=== PATIENT | female | born 1995 | race Caucasian/White ===

== ENCOUNTER 2025-03-16 20:13 | Emergency (ER) | payer MEDICAID ==
[~2025-03-16] VITALS: Ht 149.9 cm; Wt 75.1 kg
[2025-03-16 20:15] VITALS: TEMP 98.7
[2025-03-16 20:49] LABS: MEAN PLATELET VOLUME 9.1 FL (7.4-10.4); RED CELL DISTRIBUTION WIDTH 13.7 % (11.5-14.5)
[2025-03-16 20:58] LABS: LEUKOCYTE ESTERASE ,URINE NEGATIVE (Neg); NITRITES, URINE NEGATIVE (Neg); OCCULT BLOOD,URINE MODERATE (Neg)
[2025-03-16 21:01] LABS: UA COLLECTION TYPE CLN CATCH MIDSTREAM; URINE HCG NEGATIVE (NEG)
[2025-03-16 21:08] LABS: CREATININE 0.96 MG/DL (0.40-0.90); TOTAL CARBON DIOXIDE 28.2 MMOL/L (24-32); eCRCL 59 ML/MIN; eGFR 69 ML/MIN
[2025-03-16 21:09] LABS: MUCUS STRANDS FEW /LPF (Neg); SQUAMOUS EPITHELIAL CELL,UR MODERATE /LPF (FEW)
--- NOTE | 2025-03-16 23:59 | Physician Documentation ---
History of Present Illness Chief Complaint: Abdominal Pain w/vomiting Stated Complaint: ABD PAIN Time Seen by MD: 23:45 HPI Patient is seen today with a complicated history of right upper quadrant abdominal pain. Patient states he is taking a GLP one injection for PCOS and she started that about 10 months ago. Patient states November of this year about four months ago she started having severe and significant right upper quadrant abdominal pain. Patient states he has had multiple abdominal ultrasounds and a HIDA scan as well as a CT scan of her abdomen today at [facility] without any sign of cholecystitis or other abnormality of her abdomen visible on CT scan. Patient states she is having severe abdominal pain mostly in the right upper quadrant and states she has terrible gas pain. Patient states she also has not had a bowel movement in about four days however she also has not been eating very much. She has no other concern or complaint at this time. Medication Reconciliation Allergies: Coded Allergies: No Known Allergies (Unverified , 03/16/25) Review of Systems Constitutional: Denies: chills, fever, weakness Eyes: Denies: pain, blurred vision ENT: Denies: ear pain, nose pain, throat pain, mouth pain Respiratory: Denies: cough, shortness of breath Cardiovascular: Denies: chest pain, palpitations Gastrointestinal: Denies: abdominal pain, nausea, vomiting Genitourinary: Denies: burning, dysuria Female Genitalia: Denies: vaginal discharge, pelvic pain Neurological: Denies: headache, dizziness Musculoskeletal: Denies: pain, swelling Integumentary: Denies: rash, lesions Allergic/Immunologic: Denies: hives, itching Hematologic/Lymphatic: Denies: no symptoms reported Psychiatric: Denies: depression, anxiety Physical Exam Vital Signs: Temperature: 98.7, Source: Oral, Heart Rate: 103, Respiratory Rate: 16, BP: 135/98, Pulse Oximetry: 100, Weight: 75.100 Oxygen Flow Rate: 0 Physical Exam General: Awake and Alert, no acute distress. HEENT: Conjunctiva pink, Sclera clear, Mucus Membranes moist. Neck: Supple without masses and tenderness. Resp: Unlabored. Lungs clear to auscultation bilaterally. Heart: Regular Rate and rhythm, normal S1 and S2 without murmur, rub or gallop. Abdomen: On exam abdomen is soft, nondistended, no guarding, no rebound tenderness, patient has some tenderness in the right upper quadrant, no masses. Extremities: No cyanosis,clubbing or edema. Skin: Warm and Dry. Progress Results/Orders Results/Orders Vital Signs 03/16/25 20:15 Temp 98.7 Pulse 103 Resp 16 B/P (MAP) 135/98 Pulse Ox 100 O2 Flow Rate 0 Laboratory Tests Test 03/16/25 20:20 03/16/25 20:39 Urine Specimen Description Cln catch midstream Urine Color Yellow Urine Clarity Clear Urine pH 5.5 Urine Specific [place] 1.025 Urine Protein Negative Urine Glucose (UA) Negative Urine Ketones Negative Urine Occult Blood Moderate H Urine Nitrite Negative Urine Bilirubin Negative Urine Urobilinogen 0.2 Urine Leukocyte Esterase Negative Urine RBC 3-10 Urine WBC 0-4 Urine Squamous Epithelial Cells Moderate Urine Bacteria None seen Urine Mucus Few Urine Culture Indicated Not ind Volume Urine Centrifuged 8 ml Urine HCG, Qualitative Negative Urine Comment Low volume White Blood Count 10.1 Red Blood Count 4.87 Hemoglobin 14.1 Hematocrit 42.1 Mean Corpuscular Volume 86.3 Mean Corpuscular Hemoglobin 29.0 Mean Corpuscular Hemoglobin Concent 33.6 Red Cell Distribution Width 13.7 Platelet Count 256 Mean Platelet Volume 9.1 Neutrophils (%) (Auto) 64.0 Lymphocytes (%) (Auto) 25.1 Monocytes (%) (Auto) 9.5 Eosinophils (%) (Auto) 1.0 Basophils (%) (Auto) 0.4 Neutrophils # (Auto) 6.4 Lymphocytes # (Auto) 2.5 Monocytes # (Auto) 1.0 H Eosinophils # (Auto) 0.1 Basophils # (Auto) 0.0 CBC Comment Sodium Level 139 Potassium Level 4.0 Chloride Level 103 Carbon Dioxide Level 28.2 Anion Gap 8 Blood Urea Nitrogen 7 Creatinine 0.96 H Estimated GFR/1.73 m2 69 BUN/Creatinine Ratio 7.3 L Glucose Level 91 Calcium Level 9.1 Total Bilirubin 0.6 Aspartate Amino Transf (AST/SGOT) 16 Alanine Aminotransferase (ALT/SGPT) 17 Alkaline Phosphatase 65 Total Protein 7.3 Albumin 3.8 Globulin 3.5 Albumin/Globulin Ratio 1.1 Lipase 31 Chemistry Comments Medical Decision Making Findings Patient is seen today with a complicated history of right upper quadrant abdominal pain. Patient states he is taking a GLP one injection for PCOS and she started that about 10 months ago. Patient states November of this year about four months ago she started having severe and significant right upper quadrant abdominal pain. Patient states he has had multiple abdominal ultrasounds and a HIDA scan as well as a CT scan of her abdomen today at [facility] without any sign of cholecystitis or other abnormality of her abdomen visible on CT scan. Patient states she is having severe abdominal pain mostly in the right upper quadrant and states she has terrible gas pain. Patient states she also has not had a bowel movement in about four days however she also has not been eating very much. She has no other concern or complaint at this time. Patient was given dose of [place] 10/325 mg one tab by mouth in the ED tonight. Patient was also given dose of senna, and MiraLax in the ED tonight. 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 Patient will discontinue the use of her GLP-1 agonist at this time. Patient will follow up with her primary care in 3-5 days if no better as needed sooner. Return to ED with any worsening, concerning or changing symptoms. Patient will be given prescription of senna sent to patient's pharmacy and she will take MiraLax twice a day for seven days or until desired bowel movement. Patient will advance diet as tolerated will stay well hydrated. Departure Disposition: HOME / SELF CARE / HOMELESS Impression: Primary Impression: Abdominal pain Qualified Codes: R10.11 - Right upper quadrant pain Condition: Improved Discharge Instructions: Gastroparesis Additional Instructions: Patient was given dose of [place] 10/325 mg one tab by mouth in the ED tonight. Patient was also given dose of senna, and MiraLax in the ED tonight. 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 Patient will discontinue the use of her GLP-1 agonist at this time. Patient will follow up with her primary care in 3-5 days if no better as needed sooner. Return to ED with any worsening, concerning or changing symptoms. Patient will be given prescription of senna sent to patient's pharmacy and she will take MiraLax twice a day for seven days or until desired bowel movement. Patient will advance diet as tolerated will stay well hydrated. Referrals: NO PRIMARY CARE PROVIDER (PCP) Prescriptions Hydrocodone Bit/Acetaminophen (Hydrocodone-Apap 10-325 Tablet) 10mg/325mg Tablet 1 TAB PO BID PRN for pain for 3 Days, #6 TAB Prov: ODALYS CLARK 03/17/25 Sennosides/Docusate Sodium (Senna Plus 8.6-50 mg Tablet) 8.6 Mg-50 Mg Tablet 1 TAB PO TID for 10 Days, #30 TAB 0 Refills Prov: ODALYS CLARK 03/17/25 Signature Scribe Signature: No scribe Attestation: No scribe ODALYS CLARK Mar 16, 2025 23:59
[2025-03-17] MEDS ORDERED: SENN-302 PO (00:08)
[2025-03-17] MEDS ORDERED: HYDR-3973 PO (00:08)
[2025-03-17] MEDS: polyethylene glycol 3350 17gm powd pack PO STA (00:25)
[2025-03-17] MEDS: HYDROcodone/acetaminophen 10/325mg tab PO STA (00:25)
[2025-03-17 00:48] VITALS: BP 130/87; PULSE 80; RESP 16; O2SAT 99
== END 2025-03-17 00:50 | disposition home or self-care (01) ==
LOC: ER 20:15
DX: R10.11 Right upper quadrant pain (principal)
CPT/HCPCS: 36415; 80053; 81001; 81025; 83690; 85025; 99284

== ENCOUNTER 2025-07-22 11:24 | Emergency (ER) | payer MEDICAID ==
[~2025-07-22] VITALS: Ht 162.6 cm; Wt 71.0 kg
[~2025-07-22 11:24] MED LIST: SENN-302 PO
--- NOTE | 2025-07-22 11:34 | Physician Documentation ---
History of Present Illness Stated Complaint: ABD PAIN HPI Patient is a 29-year-old female that presents to the emergency department via ambulance her right upper quadrant pain since 0 500 this morning. Patient reports he has had multiple episodes of this since starting to his appetite. Patient reports he has not had a bowel. Patient reports that she is passing gas. Patient reports that the pain has significant needs to lie down in the position in order to alleviate some of the pain. Patient endorses nausea vomiting no diarrhea no bowel movement times 2-3 days. No fever chills reported at this time. No other symptoms reported at this time. Medication Reconciliation Allergies: Coded Allergies: No Known Allergies (Unverified , 03/16/25) Scheduled Sennosides/Docusate Sodium (Senna Plus 8.6-50 mg Tablet), 1 TAB PO TID Departure Referrals: NO PRIMARY CARE PROVIDER (PCP) LONG CROWLEY Jul 22, 2025 11:34
[2025-07-22 11:43] VITALS: BP 153/111; PULSE 89; RESP 18; TEMP 97.9; O2SAT 100
== END 2025-07-22 13:22 | disposition left against medical advice (07) ==
LOC: ER 11:24
DX: R10.11 Right upper quadrant pain (principal); R11.2 Nausea with vomiting, unspecified; Z79.899 Other long term (current) drug therapy; Z53.21 Procedure and treatment not carried out due to patient leaving prior to being seen by health care provider
CPT/HCPCS: 99281; 99283